=== PATIENT | female | born 1995 | race Caucasian/White ===

== ENCOUNTER → 2018-06-17 16:43 | Outpatient (REF) | payer MEDICAID, SELFPAY ==
[2018-06-21 18:32] LABS: Neisseria gonorrhoeae, NAA Negative (Negative)
== END ==
LOC: LAB 16:43
PROVIDERS: Visit Provider Obstetrics & Gynecology
DX: Z72.51 High risk heterosexual behavior (principal)
CPT/HCPCS: 87491; 87591

== ENCOUNTER → 2019-12-22 16:25 | Outpatient (CLI) | payer MEDICAID, SELFPAY ==
[2019-12-22 17:41] LABS: Basophils # 0.1 K/mm3 (0-0.2); Basophils % 0.8 % (0.1-2.0); Eosinophils # 0.2 K/mm3 (0.0-0.4); Eosinophils % 1.3 % (0.1-12.0); Hematocrit 42.2 % (37.0-47.0); Hemoglobin 13.8 g/dL (12.2-16.2); Lymphocytes # 2.5 K/mm3 (0.7-4.5); Lymphocytes % 21.2 % (10-50); Mean Corpuscular HGB Conc 32.7 g/dL (31.8-35.4); Mean Corpuscular Volume 94.8 fl (81-99); Mean Platelet Volume 7.6 fl (7.4-10.4); Monocytes # 0.5 K/mm3 (0.1-1.0); Monocytes % 4.1 % (1.7-9.3); Neutrophils # 8.7 K/mm3 (1.8-7.8); Neutrophils % 72.7 % (37.0-80.0); Platelet Count 344 K/mm3 (142-424); Red Blood Count 4.45 M/mm3 (4.20-5.40); Red Cell Distribution Width 12.4 % (11.5-17.5)
[2019-12-24 12:01] LABS: Hepatitis B Surface Antigen Negative (Negative); Hepatitis C Antibody <0.1 s/co ratio (0.0-0.9); Rapid Plasma Reagin Ab Titer Non Reactive (NonRea<1:1); Rubella Antibodies, IgG <0.90 index (Immune >0.99)
[2019-12-24 12:02] LABS: HIV Screen 4th Generation wRfx Non Reactive (Non Reactive)
== END ==
PROVIDERS: Visit Provider Nurse Practitioner Obstetrics & Gynecology
DX: Z34.90 Encounter for supervision of normal pregnancy, unspecified, unspecified trimester (principal)
CPT/HCPCS: 36415; 85025; 86592; 86703; 86762; 86850; 87340; 87380; G0432

== ENCOUNTER → 2020-01-15 13:01 | Outpatient (CLI) | payer OTHER, SELFPAY ==
--- NOTE | 2020-01-15 13:04 | US_ITS ---
PROCEDURE: US OB TRANSVAGINAL CLINICAL INDICATION: for dates Early Ob ultrasound for dates COMPARISON: No exams were available for comparison FINDINGS: There is a single live fetus present. Average ultrasound age is 13 weeks 1 day. The following parameters are obtained: BPD 13 weeks 3 days, HC 13 weeks 2 days, AC 12 weeks 6 days, FL 12 weeks 5 days. heart tones are present at 174 BPM. The cervix is closed and measures 4 cm. The placenta is posterior IMPRESSION: Live IUP at 13 weeks 1 day Estimated due date by Ultrasound is 07/21/2020 Dictated by: Donis Syed MD 01/15/2020 15:23 Electronically signed by Donis Syed MD in [place] 01/15/2020 15:23
== END ==
PROVIDERS: PCP Internal Medicine Adolescent Medicine; Visit Provider Nurse Practitioner Obstetrics & Gynecology
DX: Z34.90 Encounter for supervision of normal pregnancy, unspecified, unspecified trimester (principal)
CPT/HCPCS: 76817

== ENCOUNTER → 2020-03-02 13:10 | Outpatient (CLI) | payer OTHER, SELFPAY ==
--- NOTE | 2020-03-02 13:10 | US_ITS ---
PROCEDURE: US OB /MATERNAL DETAIL CLINICAL INDICATION: 20 week gestation COMPARISON: US OB TRANSVAGINAL from 01/15/2020 FINDINGS: There is a single live fetus which is in cephalic presentation. Cervix is closed and measures greater than 3 cm. Placenta is posterior and grade 1. The the Complete survey performed and was unremarkable on the submitted images as in PACS. No discrete anomalies identified on survey imaging by technologist. Active fetus. Three-vessel cord with satisfactory umbilical cord insertion. 4- chamber heart noted. Survey of brain & ventricles Unremarkable. Face and neck survey unremarkable. Diaphragm and chest views unremarkable. Abdomen: Both kidneys noted and unremarkable. Stomach noted and satisfactory. Spine: Survey of the spine satisfactory with no anomalies identified nor imaged. Both arms and legs noted. Amniotic Fluid: Adequate. Maternal adnexa: No significant findings. Measurements: Average ultrasound age 19weeks 3days. Gestational Age 19 weeks 6 days Estimated due date by ultrasound age 1007/24/2020. Estimated weight 297g BPD = 19weeks 4days OFD = 19 weeks 4 days HC = 18weeks 6days AC = 19weeks 4days FL = 19weeks 5days Growth Percentile= 28Percent% Heart Rate = 140bpm Cerebellum = 19weeks 3days Humerus = 19weeks 3days HC/AC is 1.12 CI is 0.8 FL/BPD is 0.7 FL/AC is 0.22 IMPRESSION: There is a live intrauterine gestation at 19 weeks 3 days which is in cephalic presentation. All parameters correlate with no obvious anomalies. Please see above for detail. Dictated by: Donis Syed MD 03/02/2020 16:29 Electronically signed by Donis Syed MD in [place] 03/02/2020 16:29
== END ==
PROVIDERS: PCP Internal Medicine Adolescent Medicine; Visit Provider Nurse Practitioner Obstetrics & Gynecology
DX: Z34.90 Encounter for supervision of normal pregnancy, unspecified, unspecified trimester (principal); Z3A.20 20 weeks gestation of pregnancy
CPT/HCPCS: 76811

== ENCOUNTER → 2020-04-23 12:05 | Outpatient (CLI) | payer OTHER, SELFPAY ==
[2020-04-23 12:47] LABS: Glucose,Fasting 90 mg/dl (74-100)
== END ==
PROVIDERS: Visit Provider Nurse Practitioner Obstetrics & Gynecology
DX: Z34.90 Encounter for supervision of normal pregnancy, unspecified, unspecified trimester (principal)
CPT/HCPCS: 36415; 82951

== ENCOUNTER 2020-06-10 12:05 | Outpatient (CLI) | payer OTHER, SELFPAY ==
[2020-06-10 12:22] VITALS: BMI 32.4
[2020-06-10 12:35] LABS: Microscopic, Urine URINE MICROSCOPIC (MICROSCOPIC)
[2020-06-10 12:36] VITALS: BP 137/81; PULSE 101; RESP 18; TEMP 36.5; O2SAT 96; BMI 32.4
[2020-06-10 12:39] LABS: Appearance,Urine SL CLOUDY (Clear); Bilirubin,Urine Negative (Negative); Blood, Urine Negative (Negative); Color,Urine YELLOW (Yellow); Glucose,Urine (UA) Negative (Negative); Ketones,Urine Negative (Negative); Leukocyte Esterase,Urine 1+ (Negative); Nitrate,Urine Negative (Negative); PH,Urine 8.5 (5.0-8.5); Protein,Urine Negative (Negative); Urobilinogen,Urine 0.2 EU/dl (0.2)
[2020-06-10 12:50] LABS: Bacteria,Urine 3+ /lpf
[2020-06-10 12:52] LABS: Barbiturates Screen,Urine Negative ng/ml (<200); Benzodiazepines Screen,Urine Negative ng/ml (<200)
[2020-06-10 12:53] LABS: Amphetamine/Metha Screen,Urine Negative ng/ml (<1000)
[2020-06-10 12:54] LABS: Methadone Screen,Urine Negative ng/ml (<300)
[2020-06-10 12:55] LABS: Cannabinoid Screen,Urine Negative ng/ml (<50)
[2020-06-10 12:56] LABS: Cocaine Screen,Urine Negative ng/ml (<300)
[2020-06-10 12:57] LABS: Opiate Screen,Urine Negative ng/ml (<300)
[2020-06-10 12:58] LABS: Phencyclidine Screen,Urine Negative ng/ml (<25)
[2020-06-10 13:00] VITALS: BP 128/74; PULSE 98; RESP 20; TEMP 36.5; O2SAT 96
== END 2020-06-10 13:08 | disposition home or self-care (01) ==
LOC: OBOUT 12:11 → OB 12:13
PROVIDERS: Obstetrics & Gynecology; PCP Internal Medicine Adolescent Medicine; Visit Provider Nurse Practitioner Obstetrics & Gynecology
DX: R11.10 Vomiting, unspecified (principal); Z3A.34 34 weeks gestation of pregnancy
CPT/HCPCS: 59025; 80305; 81001; 87086; 87088; 87186

== ENCOUNTER → 2020-06-19 14:00 | Outpatient (CLI) | payer OTHER, SELFPAY | PROVIDERS: Visit Provider Nurse Practitioner Obstetrics & Gynecology | DX: Z34.90 Encounter for supervision of normal pregnancy, unspecified, unspecified trimester (principal) | CPT/HCPCS: 86403 ==

== ENCOUNTER 2020-07-20 05:25 | Inpatient (IN) | payer OTHER, SELFPAY ==
[2020-07-20 05:30] VITALS: BP 151/90; PULSE 133; RESP 20; TEMP 36.7; O2SAT 98; BMI 34.8
[2020-07-20 05:31] VITALS: BMI 34.7
[2020-07-20 06:18] LABS: Microscopic, Urine URINE MICROSCOPIC (MICROSCOPIC)
[2020-07-20 06:23] LABS: Basophils % 0.2 % (0.1-2.0); Eosinophils # 0.1 K/mm3 (0.0-0.4); Hematocrit 41.5 % (37.0-47.0); Hemoglobin 13.3 g/dL (12.2-16.2); Lymphocytes # 2.4 K/mm3 (0.7-4.5); Lymphocytes % 19.3 % (10-50); Mean Corpuscular HGB Conc 32.2 g/dL (31.8-35.4); Mean Corpuscular Hemoglobin 29.9 pg (27.0-31.2); Mean Corpuscular Volume 92.9 fl (81-99); Mean Platelet Volume 8.8 fl (7.4-10.4); Monocytes # 0.7 K/mm3 (0.1-1.0); Monocytes % 5.4 % (1.7-9.3); Neutrophils # 9.3 K/mm3 (1.8-7.8); Neutrophils % 74.1 % (37.0-80.0); Platelet Count 271 K/mm3 (142-424); Red Blood Count 4.46 M/mm3 (4.20-5.40); Red Cell Distribution Width 14.2 % (11.5-17.5); White Blood Count 12.6 K/mm3 (4.8-10.8)
[2020-07-20 06:46] LABS: Appearance,Urine CLEAR (Clear); Bilirubin,Urine Negative (Negative); Blood, Urine Negative (Negative); Color,Urine YELLOW (Yellow); Glucose,Urine (UA) Negative (Negative); Ketones,Urine TRACE (Negative); Leukocyte Esterase,Urine 1+ (Negative); Nitrate,Urine Negative (Negative); Protein,Urine Negative (Negative); Urobilinogen,Urine 0.2 EU/dl (0.2)
[2020-07-20 07:00] LABS: Amphetamine/Metha Screen,Urine Negative ng/ml (<1000); Barbiturates Screen,Urine Negative ng/ml (<200)
[2020-07-20 07:01] LABS: Benzodiazepines Screen,Urine Negative ng/ml (<200)
[2020-07-20 07:02] LABS: Coronavirus 19 IgG Antibody Negative (Negative); Coronavirus 19 IgM Antibody Negative (Negative)
[2020-07-20 07:02] LABS: Cannabinoid Screen,Urine Negative ng/ml (<50); Cocaine Screen,Urine Negative ng/ml (<300)
[2020-07-20 07:03] LABS: Methadone Screen,Urine Negative ng/ml (<300)
[2020-07-20 07:05] LABS: Opiate Screen,Urine Negative ng/ml (<300); Phencyclidine Screen,Urine Negative ng/ml (<25)
[2020-07-20 07:06] LABS: Bacteria,Urine Trace /lpf
--- NOTE | 2020-07-20 08:20 | [facility].LABNOT ---
Labor Note - Subjective: Date: 07/20/20 Time: 08:20 regular contraction - Objective: NST:: Reactive Contractions:: every 2-3 minutes Cervical Dilation:: 3 Effacement:: 90% Station: -2 Membranes: artificially ruptured Comment:: I ruptured her membranes and there was clear fluid. - Fetus: Monitoring?: Yes monitoring type:: External - Assessment: Labor progressing?: Yes Cephalopelvic disproportion?: No Patient Problems: All Active Problems (Acute) - Plan: Anesthesia for epidural?: No Continue to labor down?: Yes Plan for ?: No Continue to monitor?: Yes Start pushing?: No
--- NOTE | 2020-07-20 08:24 | [facility].OBAPHP ---
OB - H&P: HPI Antepartum - History of Present Illness Chief complaint: Term ,pressure History of present illness: She is a 24-year-old 1 para 0 at 39 and 6 weeks gestational age. She was feeling pressure and as result that we elected to augment her labor at term. - History of Present Criteria for establishing EDC:: LMP confirmed by 1st trimester US care: good care Ultrasounds: normal 1st trimester US, normal mid trimester US Obstetrical complications: none Medical complications: none - Labs Blood type: O (+) positive Rubella: immune RPR/VDRL: nonreactive GBS status: negative HBsAG: negative [facility] History I have reviewed the patient's past medical history: Yes Medical History: Reports:: Anxiety Denies:: Depression, Diabetes Mellitus Type 1, Hyperlipidemia, Hypertension, Migraine *Have you ever received a pneumonia vaccine?: No *Have you received a flu vaccine this season?: No Other Surgeries: No: Amputation: No Fractures: No - *Social History Smoking Status: Never smoker Alcohol Intake: never Alcohol Intake Frequency:: other Substance Use Type: denies use *Occupational Status:: employed *Travel in the last 8 weeks: None - Psychiatric History Pschychiatric History:: Reports:: Anxiety Denies:: Depression Family Hx:: Cancer, Diabetes, Heart Attack, Thyroid Disorder, Stroke, Kidney Disease, Hypertension, Hyperlipidemia, Asthma, Coronary Artery Disease Para: 0 Review of Systems - Review of Systems Review of systems:: pertinent systems reviewed and negative unless documented below Meds Home Medications Medication Instructions Recorded Confirmed Type Ferrous Sulfate 325 mg PO DAILY 07/20/20 07/20/20 History [id number]/Iron Fum/Folic/Docusate 1 tab PO DAILY 07/20/20 07/20/20 History [Se- 19 Tablet] Allergies Allergy/AdvReac Type Severity Reaction Status Date / Time No Known Allergies Allergy Verified 07/20/20 06:57 OB - H&P: Exam - Physical Exam Vital signs: Temp Pulse Resp BP Pulse Ox 98.0 F 133 H 20 151/90 H 98 07/20/20 05:30 07/20/20 05:30 07/20/20 05:30 07/20/20 05:30 07/20/20 05:30 - Constitutional no acute distress - Routine HEENT Exam Head: Present: normocephalic Eye: Present: EOMI, PERRL ENT: Present: mucous membranes moist - Routine Neck Exam Present: supple, full ROM - Routine Respiratory Exam Absent: accessory muscle use (good air entry bilaterally), respiratory distress, wheezes, crackles - Routine Cardiovascular Exam Present: RRR. Absent: murmur - Routine Abdominal Exam Present: soft, normoactive bowel sounds. Absent: tenderness, distended, guarding - Routine Rectal Exam Patient deferred: visual exam, digital exam - Routine Exam Patient deferred: external exam, groin exam, perineal exam - Routine Extremities Exam Present: full ROM. Absent: cyanosis, edema - Routine Skin Exam Present: intact. Absent: cyanosis - Routine Neurological Exam Present: alert, oriented X3 - Routine Psychiatric Exam Present: normal affect OB - Results - Labs Labs: Short CBC 07/20/20 Range/Units 06:06 WBC 12.6 H (4.8-10.8) K/mm3 Hgb 13.3 (12.2-16.2) g/dL Hct 41.5 (37.0-47.0) % Plt Count 271 (142-424) K/mm3 Urine 07/20/20 Range/Units 05:40 Urine Color Yellow (Yellow) Urine Appearance Clear (Clear) Urine pH 6.0 (5.0-8.5) Ur Specific [place] 1.020 (1.005-1.030) Urine Protein Negative (Negative) Urine Glucose (UA) Negative (Negative) OB - A/P Antepartum (1) Normal delivery Status: Acute - Additional Plan Planning to breastfeed?: Yes Plan: induction Additional Information:: She is 39 weeks and 6 days and feeling some pressure. As result of that we have elected to induce her labor.
--- NOTE | 2020-07-20 12:25 | P.PCN_ITS ---
- Delivery Note Delivery Date:: 07/20/20 Delivery Time:: 12:11 Anesthesia Type: None Was labor medically induced?: Yes Induction method: per misoprostol protocol Gestational age (weeks): 39 delivered prior to 39 weeks?: No Gender: Male at 1 minute: 9 at 5 minutes: 9 LAC or MLE?: LAC Delivery Procedure:: She is a 24-year-old 1 now para 0 who was 39 and 6 weeks gestational age. She had been feeling some pressure and as result of that we elected to induce her labor. She was started on IV oxytocin had her membranes ruptured. She progressed to full dilation and delivered spontaneously a liveborn male child at 12:11 PM in the afternoon of July 20, 2020. On deliver the head the anterior shoulder easily delivered followed by the rest of the infant's body atraumatically. The oropharynx and nasopharynx were bulb suction. The baby was quite vigorous so we allowed the cord to continue to pulsate for approximately 1 minute. The cord was then doubly clamped and cut and the was placed on the mother's chest for further care. The nurses assigned Apgars of 9 at 1 minute and 9 at 5 minutes. We then obtained cord blood as well as cord pH. She had a right labial tear at the superior aspect of the right labia minora and I infiltrated this area with approximately 6 cc of 1% Xylocaine with epinephrine. I then reapproximated the skin here with interrupted 3-0 Vicryl Rapide suture. Using gentle traction on the cord and countertraction on the fundus I was then able to easily deliver the placenta intact. It had a normal three-vessel cord although the cord was somewhat short. It was only about 12 inches long. She has O+ blood, she is rubella immune and was group B streptococcus negative. She plans to breast-feed. Her environmental services tech is Dr. Grove. Estimated blood loss was approximately 500 cc. Laceration:: labial Placental Delivery Description: Spontaneous
[2020-07-20 12:34] LABS: Cord Blood PH 7.23 (7.35-7.45)
[2020-07-21 07:34] LABS: Hematocrit 33.5 % (37.0-47.0); Hemoglobin 11.1 g/dL (12.2-16.2)
[2020-07-21 08:40] VITALS: BP 129/80; PULSE 84; RESP 18; TEMP 36.5; O2SAT 98
--- NOTE | 2020-07-21 08:42 | [facility]H.ACPN2 ---
Internal Medicine - PN: Subj *Date: 07/21/20 *Time: 08:42 Interval history: She is doing well this morning. She is eating and drinking and ambulating. She is breast-feeding. Her lochia is normal. Exam Vital signs and Labs for Last 24 Hours: Temp Pulse Resp BP Pulse Ox 98.0 F 133 H 20 151/90 H 98 07/20/20 05:30 07/20/20 05:30 07/20/20 05:30 07/20/20 05:30 07/20/20 05:30 Laboratory Results - last 24 hr 07/20/20 12:20: Cord ABG pH 7.23 L* 07/21/20 06:48: Hgb 11.1 L, Hct 33.5 L I & O for Last 24 hours: Intake & Output 07/18/20 07/19/20 07/20/20 07/21/20 11:59 11:59 11:59 11:59 Weight 222 lb Microbiology Reports for the Last 24 Hours: Microbiology 07/20/20 05:40 Urine,Clean Catch Urine Culture - Preliminary NO GROWTH AFTER 24 HOURS - Constitutional no acute distress - *Routine HEENT Exam Head: Present: normocephalic Eye: Present: EOMI, PERRL ENT: Present: mucous membranes moist Assessment and Plan (1) Normal delivery Status: Acute Category: Medical Code(s): O80 - Encounter for full-term uncomplicated delivery - Assessment and plan all Dx Assessment and Plan for all problems:: She is doing very well. We will plan to send her home tomorrow.
[2020-07-21 12:45] VITALS: BP 132/71; PULSE 86; RESP 16; TEMP 36.7
[2020-07-21 16:05] VITALS: BP 129/78; PULSE 96; RESP 18; TEMP 36.7; O2SAT 98
--- NOTE | 2020-07-22 10:09 | P.DS_ITS ---
General - General Admission date:: 07/20/20 Discharge date: 07/22/20 HPI - History of Present Illness History of present illness: She is a 24-year-old 1 now para 1 who was 39 and 6 weeks gestational age. She was feeling pressure and as result of that we elected to induce her labor. Hospital Course Hospital Course: She was started on IV oxytocin had her membranes ruptured. She progressed to full dilation and delivered spontaneously a liveborn male child at 12:11 PM in the afternoon of July 20, 2020. The baby weighed 8 pounds 10 ounces and was 20 inches long. He had Apgars of 9 at 1 minute and 9 at 5 minutes. She has done very well and has remained afebrile throughout her hospitalization. She is eating and drinking and ambulating. She is breast-fe eding. Her lochia is normal. She has O Rh+ blood, she is rubella nonimmune and was group B streptococcus negative. She has initially refused her MMR immunization. She will be discharged home to follow-up with me in approximately 2 weeks time. She will continue with her vitamins and iron. She is given the usual instructions with respect to limiting her activity, driving and sexual activity. Her condition on discharge is stable and improved. Rhogam Administration: Not Indicated Objective Vital signs: Temp Pulse Resp BP Pulse Ox 98.1 F 96 H 18 129/78 98 07/21/20 16:05 07/21/20 16:05 07/21/20 16:05 07/21/20 16:05 07/21/20 16:05 no acute distress - *Routine HEENT Exam Head: Present: normocephalic Eye: Present: EOMI, PERRL ENT: Present: mucous membranes moist DS: Diagnosis - Discharge Diagnosis (1) Normal delivery Status: Acute Discharge Plan - Patient Discharge Instructions ACTIVITY: No heavy lifting DIET: continue same diet Additional Instructions: Nothing in the vagina for 6 weeks Drink plenty of fluids Patient Instructions: Depression, Hemorrhage, DI for Labor and Delivery, Vaginal , DI for Pre-eclampsia, [facility] Post Discharge Instructions, Preventing the Spread of Coronavirus Discharge Instructions - Follow up Plan Follow up with: Hipolito Hyatt MD [Staff Physician] - 08/03/20 10:15 am Disposition: Home, Self-Nursing Home Medications: Home Medications Medication Instructions Recorded Confirmed Type Ferrous Sulfate 325 mg PO DAILY 07/20/20 07/20/20 History [id number]/Iron Fum/Folic/Docusate 1 tab PO DAILY 07/20/20 07/20/20 History [Se- 19 Tablet] Prescriptions/Medication Reconciliation: Continued Zga122/Iron Fum/Folic/Docusate [Se- 19 Tablet] 1 tab PO DAILY Ferrous Sulfate 325 mg PO DAILY - Problem Reconciliation Problems Reviewed?: Yes
== END 2020-07-22 12:25 | disposition home or self-care (01) | DRG 807 ==
PROVIDERS: Admitting Provider Nurse Practitioner Obstetrics & Gynecology; PCP Internal Medicine Adolescent Medicine; Visit Provider Nurse Practitioner Obstetrics & Gynecology
DX: O70.0 First degree perineal laceration during delivery (principal); Z37.0 Single live birth; Z3A.39 39 weeks gestation of pregnancy
CPT/HCPCS: 59409; 36415; 59025; 80305; 81001; 82800; 85014; 85018; 85025; 86328; 86850; 87086; C1758; J0595